=== PATIENT | female | born 1955 | race Caucasian/White ===

== ENCOUNTER 2024-09-02 11:58 | Emergency (ER) | payer SELFPAY ==
[2024-09-02 12:02] VITALS: BP 136/90
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
[2024-09-02 14:33] VITALS: BP 153/80
== END 2024-09-02 14:39 | disposition home or self-care (01) ==
LOC: EMR 11:58
PROVIDERS: EMERGENCY PHYSICIAN Emergency Medicine; FAMILY PHYSICIAN Internal Medicine
DX: M54.50 Low back pain, unspecified (principal); R51.9 Headache, unspecified; V89.2XXA Person injured in unspecified motor-vehicle accident, traffic, initial encounter
CPT/HCPCS: 99284; 70450; 72131

== ENCOUNTER 2025-02-13 10:09 | Emergency (ER) | payer MEDICARE, OTHER, SELFPAY ==
[2025-02-13 10:17] VITALS: BP 138/89
--- NOTE | 2025-02-13 12:26 | ED.GENMED ---
History of Present Illness
General
Chief Complaint: Musculo-Skeletal Complaint
Time Seen by Provider: 02/13/25 12:13
History of Present Illness
History of Present Illness:
70-year-old female history of hypertension, hyperlipidemia presenting with left buttock pain radiating down her left leg to her toes starting few days ago. Patient states that pain is worse with movement, lying flat and sitting. Patient denies
numbness, weakness, tingling or incontinence. Patient states that she is having difficulty ambulating secondary to pain. Patient states she is taken Tylenol, ibuprofen and leftover oxycodone with minimal relief. Patient denies recent fall,
trauma, or heavy lifting.
Phy Exam
Physical Exam
Physical Exam:
General: Alert, no acute distress
Head: NCAT
Eyes: clear conjunctiva
Neck: supple
Cardiac: regular rate and rhythm, no murmur
Lungs: clear to auscultation bilaterally. No wheezes, rales, or rhonchi. Speaking full unlabored sentences. No respiratory distress.
Abdomen: soft, nondistended nontender. No rebound or guarding.
MSK: no lower extremity edema bilaterally. No deformity. No midline thoracic/lumbar tenderness to palpation
Skin: warm, dry
Neuro: Alert and oriented x3. 5/5 strength bilateral hip/knee/ankle flexion extension. Sensation intact no saddle paresthesia
Course
Orders/Labs/Results
Orders:
Orders
02/13/25 12:25
Acetaminophen [Tylenol] 1,000 mg PO NOW STA
Cyclobenzaprine HCl [Flexeril] 10 mg PO NOW STA
Ketorolac [Toradol] 30 mg IM NOW STA
Lidocaine [Lidocaine 4% Patch] 1 patch TOPICAL NOW ONE
Apply Lidocaine patch(s) to:: left low back
Vital Signs
Initial and Last Documented VS:
Initial Vital Signs
Temp Pulse Resp BP Pulse Ox
98.5 F 84 16 138/89 97
02/13/25 10:17 02/13/25 10:17 02/13/25 10:17 02/13/25 10:17 02/13/25 10:17
Last Documented Vital Signs
Temp Pulse Resp BP Pulse Ox
98.5 F 84 16 138/89 97
02/13/25 10:17 02/13/25 10:17 02/13/25 10:17 02/13/25 10:17 02/13/25 10:17
MDM/Problems Addressed
MDM/Problems Addressed:
70-year-old female presenting with left buttock pain radiating down her left leg starting few days ago. Otherwise neurologically intact. No red flag signs/symptoms that warrant emergent imaging at this time. Suspect sciatica. Will treat
symptomatically. Stable for discharge with PCP follow-up. Patient states she has a appointment with her PCP on Monday
*Critical Care Note
Total Time (30-74mins, 75-104mins- exclusive of procedures): Not Applicable
ED Attending Note
-
Portions of this chart may have been created with voice recognition software.� Occasional wrong word or��sound alike� substitutions may have occurred due to the inherent limitations of voice recognition software.
Discharge Plan
Departure
Patient Disposition: Home (Routine Discharge)
Date of Disposition: 02/13/25
Time of Disposition: 12:30
Patient with high blood pressure during this ER visit?: Yes
Discharge Problem:
Sciatica of left side
Instructions: Sciatica - ED discharge instructions, BLOOD PRESSURE
Prescriptions:
New
methylprednisolone [Medrol (Tobi)] 4 mg tablets,dose pack
4 mg PO DAILY Qty: 21 0RF
lidocaine 5 % adhesive patch,medicated
1 patch topical DAILY Qty: 30 0RF
methocarbamol 500 mg tablet
500 mg PO TID Qty: 30 0RF
No Action
oxycodone-acetaminophen [Endocet] 5-325 mg tablet
1 - 2 tab PO Q8H PRN (Reason: Pain) Qty: 10 0RF
Referrals:
Marleny Oneal MD [Family Provider, Internal Medicine]
Stand Alone Forms: Return to Work
Activity Restrictions/Additional Instructions:
Take Tylenol 975 mg every 6 hours and/or ibuprofen 800 mg every 8 hours with food as needed for pain
Take Robaxin as needed for muscle spasm
Use lidocaine patch as needed. Change every 12 hours. If prescription lidocaine patch is too expensive, purchase [id number] lidocaine patches (they're 4% and nearly the same)
Take Medrol Dosepak as prescribed
Follow-up with primary care doctor on Monday as scheduled
Return to emergency department for numbness, focal weakness, tingling, incontinence or new/worsening symptoms
Interventions
Interventions:
*Risk Screen - Suicide Last Done: 02/13/25 10:17
*General Assessment Last Done: 02/13/25 10:17
*Neglect/Abuse Screening Last Done: 02/13/25 10:17
*ED- Fall Risk Assessment Last Done: 02/13/25 13:02
*ED COVID-19 Vaccine History Last Done: 02/13/25 13:02
*Nursing Disposition Last Done: 02/13/25 13:02
ED-Musculoskeletal Assessment Last Done: 02/13/25 13:02
Discharge Date and Time
Discharge Date/Time: 02/13/25 13:03
Print Language: INDONESIAN
[2025-02-13] MEDS: TYLENOL 1000 MG PO (12:41)
[2025-02-13] MEDS: LIDOCAINE 4% PATCH 1 PATCH TOPICAL (12:42)
[2025-02-13] MEDS: FLEXERIL 10 MG PO (12:42)
[2025-02-13] MEDS: TORADOL 30 MG IM (12:42)
== END 2025-02-13 13:03 | disposition home or self-care (01) ==
LOC: EMR 10:09
PROVIDERS: EMERGENCY PHYSICIAN Emergency Medicine; FAMILY PHYSICIAN Internal Medicine
DX: M54.32 Sciatica, left side (principal); I10 Essential (primary) hypertension; E78.00 Pure hypercholesterolemia, unspecified
CPT/HCPCS: 99282; 96372